=== PATIENT | male | born 1985 | race American Indian/Alaskan Native ===

== ENCOUNTER 2016-05-30 10:17 | Emergency (ER) | payer BC ==
[2016-05-30 10:32] VITALS: BP 141/84; PULSE 87; RESP 16; TEMP 97.6; O2SAT 100
[2016-05-30 10:33] VITALS: BMI 23.3
--- NOTE | 2016-05-30 10:52 | ED PDOC ---
HPI: Wound Care - HPI Time Seen by Provider: 05/30/16 10:21 Chief Complaint (Nursing): Wound Check Chief Complaint (Provider): "Popped stitch" History Per: Patient History Of Present Illness: Pt states a glass shower door fell on his hand at a hotel 3 days ago. Pt [place] in [place]. 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 Pt states that he was working and some of the sutures popped. Pt denies pain, bleeding or drainage. Pt came for evaluation. Past Medical History Reviewed: Historical Data, Nursing Documentation, Vital Signs Vital Signs: Last Vital Signs Temp 97.6 F 05/30/16 10:19 Pulse 87 05/30/16 10:19 Resp 16 05/30/16 10:19 BP 141/84 05/30/16 10:19 Pulse Ox 100 05/30/16 10:19 - Medical History PMH: No Chronic Diseases - Surgical History Surgical History: Appendectomy - Family History Family History: States: Unknown Family Hx - Living Arrangements Living Arrangements: With Family - Social History Current smoker - smoking cessation education provided: No - Home Medications Home Medications: Ambulatory Orders Medication Instructions Recorded Naproxen [Naprosyn] 500 mg PO Q12 PRN #14 tablet 12/06/15 Sulfamethoxazole/Trimethoprim 1 tab PO BID #13 tab 12/06/15 [Bactrim DS 800 mg-160 mg] - Allergies Allergies/Adverse Reactions: Allergies Allergy/AdvReac Type Severity Reaction Status Date / Time eggs Allergy RASH Uncoded 12/06/15 01:20 Review of Systems ROS Statement: Except As Marked, All Systems Reviewed And Found Negative Skin: Positive for: Other Physical Exam - Reviewed Nursing Documentation Reviewed: Yes Vital Signs Reviewed: Yes - Physical Exam Appears: Positive for: Well, Non-toxic, No Acute Distress Head Exam: Positive for: ATRAUMATIC, NORMAL INSPECTION, NORMOCEPHALIC Skin: Positive for: Warm. Negative for: Normal Color ((+) 2cm laceration, well- healing on the left 5th mcp, no drainage, no erythema; (+) 2 cm laceration on the left shoulder, localized erythema consistant with reaction to sutures, non- tender, no drainage ) Neck: Positive for: Normal, Painless ROM Cardiovascular/Chest: Positive for: Regular Rate, Rhythm Respiratory: Positive for: CNT, Normal Breath Sounds Back: Positive for: Normal Inspection Extremity: Positive for: Normal ROM. Negative for: Tenderness Neurologic/Psych: Positive for: Alert - ECG O2 Sat by Pulse Oximetry: 100 Medical Decision Making Medical Decision Makin sutures remain intact on the hand. Wound does not dehisce with gentle traction. Antibiotic ointment and dressing applied. Pt given splint to keep hand in place. Discussed to use during the day. Disposition - Clinical Impression Clinical Impression: Visit for wound check - Patient ED Disposition Is Patient to be Admitted: No Counseled Patient/Family Regarding: Diagnosis, Need For Followup - Disposition [facility]errals[facility] [[facility]] [facility] [Outside] Disposition: Routine/Home Disposition Time: 10:55 Condition: GOOD Instructions: Care For Your Stitches (ED) Forms: [facility] ED School/Work Excuse
== END 2016-05-30 11:05 | disposition home or self-care (01) ==
LOC: H.ER 10:17
DX: Z51.89 Encounter for other specified aftercare (principal)

== ENCOUNTER 2016-06-09 11:30 | Emergency (ER) | payer BC ==
[2016-06-09 11:31] VITALS: BMI 23.3
[2016-06-09 11:45] VITALS: BP 149/59; PULSE 85; RESP 20; TEMP 98.7; O2SAT 99
--- NOTE | 2016-06-09 12:14 | ED PDOC ---
HPI: Wound Care - HPI Time Seen by Provider: 06/09/16 12:12 Chief Complaint (Nursing): Suture/Staple Removal Chief Complaint (Provider): suture removal History Per: Patient Exam Limitations: no limitations Additional Complaint(s): 31yo M in ED for eval of suture removal from left hand and left shoulder sustained 2 weeks ago was seen in ED last week for eval. advised to use hand splint. 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 admits wound is not healing well. denies fever, drainage from wound pain around wound or redness. Past Medical History Reviewed: Historical Data, Nursing Documentation, Vital Signs Vital Signs: Last Vital Signs Temp 98.7 F 06/09/16 11:42 Pulse 85 06/09/16 11:42 Resp 20 06/09/16 11:42 BP 149/59 L 06/09/16 11:42 Pulse Ox 99 06/09/16 11:42 - Medical History PMH: No Chronic Diseases - Surgical History Surgical History: Appendectomy - Family History Family History: States: Unknown Family Hx - Home Medications Home Medications: Ambulatory Orders Medication Instructions Recorded No Known Home Med 06/09/16 - Allergies Allergies/Adverse Reactions: Allergies Allergy/AdvReac Type Severity Reaction Status Date / Time eggs Allergy RASH Uncoded 06/09/16 11:42 Review of Systems ROS Statement: Except As Marked, All Systems Reviewed And Found Negative Constitutional: Negative for: Fever, Chills Physical Exam - Reviewed Nursing Documentation Reviewed: Yes Vital Signs Reviewed: Yes - Physical Exam Appears: Positive for: Well, Non-toxic, No Acute Distress Head Exam: Positive for: ATRAUMATIC, NORMAL INSPECTION, NORMOCEPHALIC Skin: Positive for: Normal Color, Warm, Rash (sutures: left shoulder 3 sutures removed, wound healed well, scar formation noted. left hand: wound not healed, no drainge, no ertyhema wound will required 2nd intention for healing. pt strongly advised to keep area clean and dry, use anx ointment OTC and f.u with hand/plastic surgeron. no drainage [place] wound no swelling to hand) Cardiovascular/Chest: Positive for: Regular Rate, Rhythm Respiratory: Positive for: CNT, Normal Breath Sounds Neurologic/Psych: Positive for: Alert, Oriented - ECG O2 Sat by Pulse Oximetry: 99 Medical Decision Making Medical Decision Making: suture removals, advised to f.u with hand spec. Disposition - Clinical Impression Clinical Impression: Removal of suture - Patient ED Disposition Is Patient to be Admitted: No Counseled Patient/Family Regarding: Diagnosis, Need For Followup - Disposition Referrals: Lang Carmona MD [Staff Provider] - Disposition: Routine/Home Disposition Time: 12:17 Condition: STABLE Instructions: Chronic Wound Care (ED)
== END 2016-06-09 12:23 | disposition home or self-care (01) ==
LOC: H.ER 11:30
DX: Z48.02 Encounter for removal of sutures (principal)

== ENCOUNTER 2016-09-17 18:46 | Emergency (ER) | payer BC ==
[2016-09-17 18:46] VITALS: BMI 23.3
[2016-09-17 18:56] VITALS: BP 111/71; PULSE 85; RESP 18; TEMP 99; O2SAT 100
--- NOTE | 2016-09-17 20:35 | ED PDOC ---
HPI: Eye Injury/Pain Time Seen by Provider: 09/17/16 19:26 Chief Complaint (Nursing): Eye Problem Chief Complaint (Provider): Right eye pain History Per: Patient History/Exam Limitations: no limitations Onset/Duration Of Symptoms: Sudden Onset Current Symptoms Are (Timing): Still Present Severity: Moderate Quality: "Pain" Associated Symptoms: FB Sensation Additional Complaint(s): Beth Dupree is a 31 y/o male presenting to the ER on 09/17/2016 with complaints of a foreign body sensation in his right eye onset this morning. Patient notes earlier today while at work he had something flew into his right eye and has had pain ever since. Patient is uncertain of what the foreign object may be. He denies contact lens use, diabetes, or blunt trauma. Past Medical History Reviewed: Historical Data, Nursing Documentation, Vital Signs Vital Signs: Last Vital Signs Temp 99 F 09/17/16 18:51 Pulse 85 09/17/16 18:51 Resp 18 09/17/16 18:51 BP 111/71 09/17/16 18:51 Pulse Ox 100 09/17/16 18:51 - Medical History PMH: No Chronic Diseases - Surgical History Surgical History: Appendectomy - Family History Family History: States: Unknown Family Hx - Social History Current smoker - smoking cessation education provided: No Alcohol: Occasional Drugs: Denies - Home Medications Home Medications: Ambulatory Orders Medication Instructions Recorded Erythromycin 0.5% [Erythromycin] 1 applic RIGHTEYE Q6 #1 tube 09/17/16 - Allergies Allergies/Adverse Reactions: Allergies Allergy/AdvReac Type Severity Reaction Status Date / Time eggs Allergy RASH Uncoded 06/09/16 11:42 Review of Systems ROS Statement: Except As Marked, All Systems Reviewed And Found Negative Eyes: Positive for: Pain. Negative for: Vision Change Neurological: Negative for: Weakness, Numbness Physical Exam - Reviewed Nursing Documentation Reviewed: Yes Vital Signs Reviewed: Yes - Physical Exam Appears: Positive for: Non-toxic, No Acute Distress Head Exam: Positive for: ATRAUMATIC, NORMOCEPHALIC Skin: Positive for: Normal Color. Negative for: Rash Eye Exam: Positive for: Normal appearance, EOMI, PERRL, Conjunctival injection ( (+) moderate), Other (small foreign body noted at 10 o clock position of right cornea) Neurologic/Psych: Positive for: Alert, Oriented. Negative for: Motor/Sensory Deficits - ECG O2 Sat by Pulse Oximetry: 100 Medical Decision Making Medical Decision Makin:26 Initial Impression- 31 y/o male with right eye pain PROCEDURE: FOREIGN BODY REMOVAL Performed by the emergency provider Indication: Foreign body in right eye Procedure: The foreign was removed using a Q-tip. Post-procedure: Patient tolerated the procedure well with no immediate complications. The foreign body was removed. Post-removal examination removed showed fluorescein uptake at the 10 o clock position. Pt requires no further treatment in the ED at this time and will be discharged routinely with rx for Erythromycin. Pt was encouraged to schedule a follow-up with referred curatorial specialist and to use Ibuprofen as needed. Advised to return if symptoms persist or worsen. Condition is stable for discharge. Clinical Impression- corneal abrasion & foreign body in eye Documented by Jude Beckman, acting as a scribe for Senthil Monreal PA-C All medical record entries made by the Scribe were at my direction and personally dictated by me. I have reviewed the chart and agree that the record accurately reflects my personal performance of the history, physical exam, medical decision making, and the department course for this patient. I have also personally directed, reviewed, and agree with the discharge instructions and disposition. Disposition - Clinical Impression Clinical Impression: Foreign body in eye, Corneal abrasion - Disposition Referrals: [facility] [Outside] Perry Haynes MD [Staff Provider] - Disposition Time: 20:30 Condition: STABLE Prescriptions: Erythromycin 0.5% [Erythromycin] 1 applic RIGHTEYE Q6 #1 tube Instructions: Corneal Abrasion (ED), Eye Foreign Body (ED) Forms: [facility] ED School/Work Excuse
== END 2016-09-17 20:34 | disposition home or self-care (01) ==
LOC: H.ER 18:46
DX: T15.01XA Foreign body in cornea, right eye, initial encounter (principal); Y99.0 Civilian activity done for income or pay